=== PATIENT | female | born 1965 | race Caucasian/White ===

== ENCOUNTER 2021-03-09 17:59 | Emergency (ER) | payer BC, SELFPAY ==
--- NOTE | ~2021-03-09 | XR_ITS ---
EXAMINATION: XR knee RT min 4V DATE: 03/09/2021 18:34 INDICATION: Right knee pain and swelling TECHNIQUE: Four views of the right knee were obtained. COMPARISON: None. FINDINGS: Alignment is normal. No fracture or osteochondral lesion. There is mild tricompartmental os teoarthritis characterized by tiny marginal osteophytes. No joint effusion/synovitis. There is media l soft tissue swelling of the knee. IMPRESSION: 1. Soft tissue swelling without acute osseous abnormality. Reviewed, dictated and finalized at location A.
[2021-03-09 18:12] VITALS: BP 134/96; PULSE 79; RESP 16; TEMP 36.9; O2SAT 97
--- NOTE | 2021-03-09 18:18 | ED.LOWEXIN ---
HPI - Extremity Injury (Lower) General Chief Complaint: Extremity Problem,Nontraumatic Stated Complaint: Right Knee Pain Time Seen by Provider: 03/09/21 18:16 Source: patient and RN notes reviewed Mode of arrival: ambulatory Limitations: no limitations History of Present Illness HPI Narrative: 55-year-old female presents to the [facility] with complaints of right knee pain worsening today. States it has been swelling over the last couple of days. No redness. Denies any trauma to the area. Has full range of motion. Patient states that the pain is worse in the morning and at night. Related Data Home Medications Medication Instructions Recorded Confirmed atorvastatin 40 mg PO DAILY 03/09/21 03/09/21 hydrochlorothiazide 12.5 mg PO DAILY 03/09/21 03/09/21 losartan 50 mg PO DAILY 03/09/21 03/09/21 Allergies Allergy/AdvReac Type Severity Reaction Status Date / Time No Known Allergies Allergy Mild Verified 03/09/21 18:18 Review of Systems Review of Systems: All systems reviewed & are unremarkable except as noted in HPI and below Constitutional: Constitutional: Reports no additional constitutional complaints, Denies chills and Denies fever(s) Eyes: Eyes: Reports no additional eye complaints ENT: Reports system reviewed and no additional complaints, except as documented Cardiovascular: Cardiovascular: Reports no additional cardiovascular complaints Respiratory: Respiratory: Reports no additional respiratory complaints Musculoskeletal: Musculoskeletal: Reports as per HPI and Reports joint swelling (Right knee without signs of infection) Integumentary/Breasts: Skin/Breast: Reports system reviewed and no additional complaints, except as docu and Denies rash Neurologic: Reports system reviewed and no additional complaints, except as documented Psychiatric: Psychiatric: Reports no additional psychiatric complaints Allergic/Immunologic: Allergic/Immunologic: Reports no additional allergic/immunologic complaints [facility] Past Medical History Medical History (Updated 03/09/21 @ 18:53 by Sandra Richards) Arthritis High cholesterol History of high blood pressure Social History Social History (Updated 03/09/21 @ 18:54 by Sandra Richards) Gender identity (if verbalized by the patient): Female Comments At the time of my signature, I reviewed and agree with the nursing past medical, surgical, social, and family history. There is no relevant family history pertinent to the patient complaint. Exam Const: General: healthy appearing, no acute distress and alert Nutritional Appearance: well nourished Orientation/consciousness: patient oriented x3 Limitations: no limitations HENMT: Head: normal to inspection Eyes: Pupils: Equal, round and reactive pupils present Neck: Neck: normal visual inspection, no lymphadenopathy and no meningeal signs Chest: Chest palpation & inspection: normal inspection of the chest Resp: Effort & Inspection: normal respiratory effort Auscultation: clear to auscultation bilaterally Cardio: Rate: regular rate Rhythm: regular rhythm Back/Spine/Pelvis: Back: no CVA tenderness Skin: General skin exam: normal color Rashes: no rashes Wounds: no wounds Neuro: General: patient oriented x3, moves all extremities, no meningeal signs and no focal motor deficits Speech: normal speech Gait exam (Neuro): Normal gait present Extrem: General: normal to inspection Right lower extremity: full ROM, normal capillary refill and knee Details: tenderness, swelling and normal ROM; no deformity and no unusual warmth Knee images: 1. Effusion noted 2. Effusion noted, tender to palpation. No signs of infection. Psych: Appearance: grossly normal and well kempt Mental Status: mental status grossly normal Affect: normal affect Attitude: cooperative Thought content: Yes Normal thought content present Course Course Emergency Course: Discharge instructions reviewed with patient, as well as provided
== END 2021-03-09 18:53 | disposition home or self-care (01) ==
PROVIDERS: Emergency Provider Nurse Practitioner; PCP Internal Medicine Infectious Disease
DX: M17.11 Unilateral primary osteoarthritis, right knee (principal); M25.461 Effusion, right knee; E78.00 Pure hypercholesterolemia, unspecified; I10 Essential (primary) hypertension
CPT/HCPCS: 73564; 99213; G0463

== ENCOUNTER 2021-05-27 15:31 | Emergency (ER) | payer BC, SELFPAY ==
--- NOTE | ~2021-05-27 | XR_ITS ---
EXAMINATION: XR ankle LT min 3V EXAM DATE: 05/27/2021 16:38 INDICATION: Rolled left ankle. Fracture. TECHNIQUE: Left ankle frontal, lateral and oblique projections obtained and reviewed. Correlation is made to left foot x-ray from 2017. FINDINGS: There is acute closed posttraumatic transverse nondisplaced fracture through the lateral ma lleolus, about 1.5 cm from the fibular tip. This type of fracture sometimes requires surgical fixatio n. Recommend orthopedic consult. There is overlying soft tissue swelling. Mortise relationship appear s intact. Moderate-sized calcaneal spur inferiorly. Moderate midfoot primary osteoarthritis. IMPRESSION: Acute transverse nondisplaced left lateral malleolar fracture; recommend orthopedic cons ult. Reviewed, dictated and finalized at location A. INSPECTOR IMPRESSION: Acute transverse nondisplaced left lateral malleolar fracture; rec ommend orthopedic consult.
[2021-05-27 16:26] VITALS: BP 104/80; PULSE 92; RESP 16; TEMP 36.5; O2SAT 98
--- NOTE | 2021-05-27 17:27 | ED.LOWEXIN ---
HPI - Extremity Injury (Lower) General Chief Complaint: Extremity Injury, Lower Stated Complaint: lef ankle pain Time Seen by Provider: 05/27/21 17:28 Source: patient Mode of arrival: ambulatory Limitations: no limitations History of Present Illness HPI Narrative: Naz Pagan is a 55 yo female with a PMH of high cholesterol, HTN, who comes to express care for follow sleep while she was on the toilet this today and when she stood up she rotated her foot externally and heard a pop. He has pain in the right upper foot when she tries to put weight on her foot Related Data Home Medications Medication Instructions Recorded Confirmed atorvastatin 40 mg PO DAILY 03/09/21 03/09/21 hydrochlorothiazide 12.5 mg PO DAILY 03/09/21 03/09/21 losartan 50 mg PO DAILY 03/09/21 03/09/21 ergocalciferol (vitamin D2) 05/27/21 Allergies Allergy/AdvReac Type Severity Reaction Status Date / Time No Known Allergies Allergy Mild Verified 03/09/21 18:18 Review of Systems Review of Systems: CONSTITUTIONAL: Denies fever, chills, sweats. EYES: Denies visual changes, redness, discharge. ENT: Denies rhinorrhea, congestion, sore throat, otalgia. CARDIOVASCULAR: Denies chest pain, palpitations, edema. RESPIRATORY: Denies dyspnea, wheezing, cough GASTROINTESTINAL: Denies abdominal pain, nausea, vomiting, diarrhea. GENITOURINARY: Denies dysuria, hematuria, abnormal discharge SKIN: Denies rash or itching. NEUROLOGIC: Denies numbness, or focal weakness. PSYCHIATRIC: Denies anxiety or depression. Left ankle pain and swelling particularly on the lateral side PMFSH Past Medical History Medical History Arthritis High cholesterol History of high blood pressure Social History Social History Gender identity (if verbalized by the patient): Female Comments At time of signature, I agree with nursing past medical, surgical, social and family history. There is no relevant family history pertinent to the presenting complaint. Exam Narrative: GENERAL: This is a well-nourished, well-developed patient, in mild distress. HEAD: normocephalic, atraumatic. EYES: Sclera clear/white. Vision is grossly intact. EARS: External ears normal. Hearing grossly intact. NOSE: External nose normal without nasal discharge, nares without redness, no rhinorrhea. THROAT: Mucous membranes moist, NECK: Neck supple, CARDIOVASCULAR: Regular rate and rhythm without murmurs, gallops, or rubs. RESPIRATORY: Clear to auscultation. Breath sounds equal bilaterally. No wheezes, rales, or rhonchi. GASTROINTESTINAL: Abdomen soft, non-tender, SKIN: warm, intact with no suspicious lesions or rash, good texture and turgor. NEURO: awake, alert, and oriented to person, place and time. There were no obvious focal neurologic abnormalities. Steady gait EXTREMITIES: Normal range of motion on R; left ankle pain on dorsum of foot and lateral ankle with swelling on lateral side. 2+ pulse,can wiggle toes BACK: Nontender without deformity Course Course Emergency Course: Pain left ankle after external rotation of ankle when getting up after or today X-ray left ankle shows acute transverse nondisplaced left lateral malleolus fracture recommend referral to orthopedics OCL placed neurologic vascularly intact prior and post OCL. Patient to see orthopedist on-call Dr. De Leon Level of Care: Express Care Visit Vital Signs Vital signs: Vital Signs Temperature 97.7 F 05/27/21 16:26 Pulse Rate 92 05/27/21 16:26 Respiratory Rate 16 05/27/21 16:26 Blood Pressure 104/80 05/27/21 16:26 Pulse Oximetry 98 05/27/21 16:26 Temperature 97.7 F 05/27/21 16:26 Pulse Rate 92 05/27/21 16:26 Respiratory Rate 16 05/27/21 16:26 Blood Pressure 104/80 05/27/21 16:26 Pulse Oximetry 98 05/27/21 16:26 MDM - Extremity Injury (Lower) Differential Diagnosis Differential
== END 2021-05-27 18:11 | disposition home or self-care (01) ==
PROVIDERS: Emergency Provider Nurse Practitioner; PCP Internal Medicine Infectious Disease
DX: S82.65XA Nondisplaced fracture of lateral malleolus of left fibula, initial encounter for closed fracture (principal); X50.9XXA Other and unspecified overexertion or strenuous movements or postures, initial encounter; E78.00 Pure hypercholesterolemia, unspecified; I10 Essential (primary) hypertension; M19.90 Unspecified osteoarthritis, unspecified site
CPT/HCPCS: 29515; 73610; 99214; G0463

== ENCOUNTER 2025-04-26 15:57 | Emergency (ER) | payer OTHER, SELFPAY ==
--- NOTE | 2025-04-26 16:04 | ED.EYEPROB ---
HPI - Eye Problem General Chief complaint: Eye Problems Stated complaint: Left Eye Irritation Time Seen by Provider: 04/26/25 16:17 Source: patient, RN notes reviewed and old records reviewed Mode of arrival: ambulatory Limitations: no limitations History of Present Illness HPI Narrative: 59-year-old female presents to the [facility] with blood to the lateral left eye. States that she noticed it on Tuesday, 2 days ago. Has had some watering. Denies any pain, blurry vision, change in vision. Denies wearing contact lenses. No trauma. Denies taking any blood thinners. Onset (ago): day(s) (2) Related Data Home Medications ?Medication ?Instructions ?Recorded ?Confirmed ?Last Taken ?Type atorvastatin 40 mg tablet 40 mg PO DAILY 03/09/21 07/16/21 Unknown History hydrochlorothiazide 12.5 mg tablet 12.5 mg PO DAILY 03/09/21 07/16/21 Unknown History ergocalciferol (vitamin D2) 05/27/21 07/16/21 Unknown History losartan 50 mg-hydrochlorothiazide tablet 04/26/25 Unknown History 12.5 mg tablet naproxen sodium 550 mg tablet mg 04/26/25 Unknown History tramadol 50 mg tablet mg 04/26/25 Unknown History Allergies Allergy/AdvReac Type Severity Reaction Status Date / Time No Known Allergies Allergy Mild Verified 04/26/25 15:59 Review of Systems Review of Systems: All systems reviewed & are unremarkable except as noted in HPI and below Constitutional: Constitutional: Reports no additional constitutional complaints Eyes: Eyes: Reports as per HPI ENT: Reports system reviewed and no additional complaints, except as documented Cardiovascular: Cardiovascular: Reports no additional cardiovascular complaints, Denies chest pain and Denies dyspnea Respiratory: Respiratory: Reports no additional respiratory complaints, Denies chest congestion, Denies cough and Denies dyspnea Musculoskeletal: Musculoskeletal: Reports no additional musculoskeletal complaints Integumentary/Breasts: Skin/Breast: Reports system reviewed and no additional complaints, except as docu PMFSH Past Medical History Medical History Arthritis History of high blood pressure High cholesterol Social History Social History Smoking status: Never smoker Alcohol intake: never Substance use: never Substance use type: does not use Gender identity (if verbalized by the patient): Female Comments At the time of my signature, I reviewed and agree with the nursing past medical, surgical, social, and family history. There is no relevant family history pertinent to the patient complaint. Exam Const: General: cooperative, healthy appearing, comfortable, no acute distress, well developed, alert and well nourished Nutritional Appearance: well nourished and obese Orientation/consciousness: patient oriented x3 Limitations: no limitations HENMT: Head: normal to inspection Ears: hearing grossly normal bilaterally and external ears normal Eyes: General: appearance normal, both eyes and all related structures Alignment and Position: alignment normal Pupils: Equal, round and reactive pupils present Eyes/upper lids images:  1. Subconjunctival hemorrhage. No blurry vision change in vision. No conjunctival erythema or discharge. Neck: Neck: normal visual inspection, full ROM, no lymphadenopathy and no meningeal signs Chest: Chest palpation & inspection: normal inspection of the chest Resp: Effort & Inspection: normal respiratory effort and able to speak in complete sentences Cardio: Rate: regular rate Skin: General skin exam: normal color and no rashes or lesions noted Neuro: General: patient oriented x3, gait normal, moves all extremities and no meningeal signs Cognition (Neuro): normal cognition Speech: normal speech Gait exam (Neuro): Normal gait present Extrem: General: normal to inspection, full ROM, capillary refill normal and normal gait Psych: Appearance: grossly normal and well kempt Mental Status: mental status grossly normal Speech and movement: Normal speech and movement present and Clear speech present Affect: normal affect Attitude: cooperative Course Course Level of Care: Express Care Visit Vital Signs Vital signs: Vital Signs Temperature 98.7 F 04/26/25 16:15 Pulse Rate 87 04/26/25 16:15 Respiratory Rate 16 04/26/25 16:15 Blood Pressure 120/79 04/26/25 16:15 Pulse Oximetry 97 04/26/25 16:15 Oxygen Delivery Room Air 04/26/25 16:15 Temperature 98.7 F 04/26/25 16:15 Pulse Rate 87 04/26/25 16:15 Respiratory Rate 16 04/26/25 16:15 Blood Pressure 120/79 04/26/25 16:15 Pulse Oximetry 97 04/26/25 16:15 Oxygen Delivery Room Air 04/26/25 16:15 reviewed MDM MDM Narrative Medical decision making narrative: Patient sitting in exam room. Patient is nontoxic, vitals stable. Patient presents with a subconjunctival hemorrhage. Denies any symptoms. Patient is appropriate for outpatient treatment with close follow-up Discharge instructions reviewed with patient, as well as provided in writing per nursing staff. The instructions also include specific and strict return/GO TO THE ER as well as f/u information. All questions have been answered, and the patient deny any further questions with discharge and discharge plan. Some parts of this dictation were generated by voice recognition software and may contain typographical and/or grammatical inaccuracies. Differential Diagnosis Differential Diagnosis: Differential diagnostic considerations for eye problems include corneal abrasion, conjunctivitis, acute iritis, hyphemia, periorbital cellulitis, subconjunctival hemorrhage, glaucoma, corneal ulcer, ruptured globe, foreign body in eye.? Discharge Plan Discharge Clinical Impression: Subconjunctival hemorrhage Qualifiers: Laterality: left Qualified Code(s): H11.32 - Conjunctival hemorrhage, left eye Patient Disposition: Home Condition: Stable Instructions: Ecchymosis (ED) Additional Instructions: Self-care and management for subconjunctival hemorrhage Cold compress:?Apply a cold compress or a washcloth to your eye for 10?15 minutes at a time to help with any discomfort.? Artificial tears:?[id number] artificial tears can help soothe any irritation or dryness.? Avoid rubbing:?Do not rub your eye, as this can worsen the bleeding and delay healing.? Limit strenuous activity:?Avoid heavy lifting or strenuous activities that can increase blood pressure and worsen the condition.? Medication:?Use acetaminophen (Tylenol) for other pain, but avoid taking multiple pain relievers at once unless advised by a doctor, as some medications can be harmful in excess.? When to seek medical attention You experience severe pain. You have vision changes, such as blurry vision. You notice flashes of light or floaters. You have extreme sensitivity to light. The hemorrhage does not clear up within two weeks. You have recurrent hemorrhages. You are on blood thinners or long-term anti-inflammatory medication.? You should follow-up with an eye doctor within the next 72 hours [place]: [place]- [phone] [facility] [phone] [facility] [phone] [place]: [place]- [phone] or [phone] [place]- [phone] [facility] [phone] [facility] [phone] [facility]- [phone] Patient Language: Citizen Of [place] Prescriptions: No Action atorvastatin 40 mg tablet 40 mg PO DAILY hydrochlorothiazide 12.5 mg tablet 12.5 mg PO DAILY diclofenac sodium [Voltaren Arthritis Pain] 1 % gel 4 g topical QID PRN (Reason: pain) Qty: 100 0RF Rx Instructions: apply to single elbow, wrist or hand; for hand includes palm/fingers/back of hand ergocalciferol (vitamin D2) tramadol 50 mg tablet naproxen sodium 550 mg tablet losartan-hydrochlorothiazide 50-12.5 mg tablet Follow-up/Referrals: Santy,Lorna Dudley [Primary Care Provider] - 2 Weeks Stand Alone Forms: Work/School Release IP Time of Disposition: 16:25
[2025-04-26 16:15] VITALS: BP 120/79; PULSE 87; RESP 16; TEMP 37.1; O2SAT 97
== END 2025-04-26 16:25 | disposition home or self-care (01) ==
PROVIDERS: Emergency Provider Nurse Practitioner; PCP Internal Medicine Infectious Disease
DX: H11.32 Conjunctival hemorrhage, left eye (principal); I10 Essential (primary) hypertension; E78.00 Pure hypercholesterolemia, unspecified; M19.90 Unspecified osteoarthritis, unspecified site
CPT/HCPCS: 99212; G0463